=== PATIENT | female | born 1985 | race Caucasian/White ===

== ENCOUNTER 2016-11-20 04:28 | Emergency (ER) | payer OTHER ==
[2016-11-20 05:26] LABS: BUN/CREATININE RATIO 11 (0-10)
[2016-11-20 06:06] LABS: RED BLOOD COUNT 4.29 M/UL (4.00-5.10); WHITE BLOOD COUNT 13.6 K/UL (4.5-11.0)
== END 2016-11-20 07:45 ==
LOC: ER1 04:28 → ZEROF 05:50 → ER1 05:50 → ZEROF 06:02
PROVIDERS: Family Medicine; Internal Medicine
DX: I46.9 Cardiac arrest, cause unspecified (principal)
CPT/HCPCS: 31500; 36415; 36600; 71010; 80053; 80307; 81001; 82550; 82553; 82803; 83036; 83735; 83874; 83880; 84132; 84443; 84484; 85025; 85610; 85730; 87077; 87086; 87186; 92950; 93005; 94002; 99291; G0480; J0171; J0282; J0610; J1265; J2001; J2250; J2310